=== PATIENT | female | born 1970 | race Caucasian/White ===

== ENCOUNTER 2017-10-10 07:18 | Emergency (ER) | payer BC ==
--- NOTE | 2017-10-10 08:01 | RAD REPORT ---
EXAM DESCRIPTION: CT - Head Brain Wo Cont - 10/10/2017 7:51 am CLINICAL HISTORY: Seizure COMPARISON: None. TECHNIQUE: Computed axial tomography of the head was obtained. IV contrast was not requested. All CT scans are performed using dose optimization technique as appropriate and may include automated exposure control or mA/KV adjustment according to patient size. FINDINGS: A posterior scalp hematoma is present without underlying skull fracture seen An intracranial bleed is not seen . The ventricles are normal in caliber. No extra-axial fluid collection is noted. Fluid within the sinuses/ mastoids is not seen. IMPRESSION: No acute intracranial abnormality is seen. If patient's symptoms persist MRI of the bra in would be recommended.
[2017-10-10 08:06] LABS: Absolute Lymphocytes (CBC) 0.9 K/uL (0.7-4.9); Absolute Monocytes 0.7 K/uL (0.1-1.3); Absolute Neutrophil 7.4 K/uL (1.8-8.0); Basophils % 0.7 % (0-1.3); Eosinophils % 1.1 % (0-4.4); Hematocrit 43.2 % (36.0-45.0); Lymphocytes % 10.2 % (15.3-44.8); MCH 31.6 pg (27.0-35.0); MCV 90.4 fL (80-100); MPV 9.2 fL (7.6-11.3); Monocytes % 7.4 % (3.3-12.3); RBC Red Blood Cell Count 4.78 M/uL (3.86-4.86)
[2017-10-10 09:28] LABS: Urine Blood 2+ (NEG); Urine Glucose NEGATIVE (NEG); Urine Protein 1+ (NEG); Urine Specific Gravity >1.030 (1.005-1.030)
[2017-10-10] MEDS ORDERED: NA CHLORIDE 0.9% 1,000 ML ONE (11:23)
--- NOTE | 2017-10-10 11:23 | RAD REPORT ---
EXAM DESCRIPTION: MRI - Brain Wo Cont - 10/10/2017 11:09 am CLINICAL HISTORY: Seizure COMPARISON: October 10, [address] TECHNIQUE: Axial, sagittal, and coronal magnetic images of the brain were obtained. Contrast was not requested FINDINGS: No abnormal signal is present within the brain. Diffusion-weighted/ADC mapping does not reveal evidence of acute infarction. The ventricles are normal caliber. An extra-axial fluid collection is not present. The hippocampal gyri are normal size and signal Mild opacification of the sphenoid and ethmoid sinuses seen. A small mucus retention cyst is present the right maxillary sinus. The mastoids are clear IMPRESSION: No acute intracranial abnormality is visualized
--- NOTE | 2017-10-10 11:57 | EDPHYS ---
Physician Documentation [facility] Name: Bonny Powers Age: 46 yrs Sex: Female : 1970 Arrival Date: 10/10/2017 Time: 07:19 Bed 6 Private MD: ED Physician Osvaldo Raymundo HPI: 10/10 16:57 This 46 yrs old Female presents to ER via EMS with complaints of Seizure. kdr 16:57 The patient presents after having a single isolated seizure, that lasted Brief. kdr Character of seizure(s): Loss of consciousness: the patient experienced loss of consciousness, Motor activity: generalized, shaking all over, Incontinence: none, Apnea: the patient did not experience apnea, Circulation: the patient did not experience evidence of pulse disturbance. Seizure onset: just prior to arrival. Context: the seizure(s) was witnessed, by a bystander, occurred at a hospital, occurred while the patient was standing. Seizure Hx: the patient has no previous seizure history. Associated injury: Head/face: left occipital area and right occipital area. The patient has not experienced similar symptoms in the past. The patient has not recently seen a physician. The patient was standing next to a hospital bed when she had an apparent syncopal episode. She fell without warning striking her head on the side of the bed and the floor. Then she had a brief episode of tonic clonic activity. By the time of her arrival to the ED, she had no recollection of the event and no complaint of pain. 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 - Social history:: Smoking status: . - Ebola Screening: : Patient denies travel to an Ebola-affected area in the 21 days before illness onset. ROS: 16:57 Constitutional: Negative for fever, chills, and weight loss, Eyes: Negative for injury, kdr pain, redness, and discharge, ENT: Negative for injury, pain, and discharge, Neck: Negative for injury, pain, and swelling, Cardiovascular: Negative for chest pain, palpitations, and edema, Respiratory: Negative for shortness of breath, cough, wheezing, and pleuritic chest pain, Abdomen/GI: Negative for abdominal pain, nausea, vomiting, diarrhea, and constipation, Back: Negative for injury and pain, : Negative for injury, bleeding, discharge, and swelling, MS/Extremity: Negative for injury and deformity, Skin: Negative for injury, rash, and discoloration, Psych: Negative for depression, anxiety, suicide ideation, homicidal ideation, and hallucinations, Allergy/Immunology: Negative for hives, rash, and allergies, Endocrine: Negative for neck swelling, polydipsia, polyuria, polyphagia, and marked weight changes, Hematologic/Lymphatic: Negative for swollen nodes, abnormal bleeding, and unusual bruising. 16:57 Neuro: Positive for headache, seizure activity, syncope. Exam: 16:57 Constitutional: This is a well developed, well nourished patient who is awake, alert, kdr and in no acute distress. Head/Face: Normocephalic, minor hematoma to the occiput Eyes: Pupils equal round and reactive to light, extra-ocular motions intact. Lids and lashes normal. Conjunctiva and sclera are non-icteric and not injected. Cornea within normal limits. Periorbital areas with no swelling, redness, or edema. Neck: Trachea midline, no thyromegaly or masses palpated, and no cervical lymphadenopathy. Supple, full range of motion without nuchal rigidity, or vertebral point tenderness. No Meningismus. Chest/axilla: Normal chest wall appearance and motion. Nontender with no deformity. No lesions are appreciated. Cardiovascular: Regular rate and rhythm with a normal S1 and S2. No gallops, murmurs, or rubs. Normal PMI, no JVD. No pulse deficits. Respiratory: Lungs have equal breath sounds bilaterally, clear to auscultation and percussion. No rales, rhonchi or wheezes noted. No increased work of breathing, no retractions or nasal flaring. Abdomen/GI: Soft, non-tender, with normal bowel sounds. No distension or tympany. No guarding or rebound. No evidence of tenderness throughout. Back: No spinal tenderness. No costovertebral tenderness. Full range of motion. Skin: Warm, dry with normal turgor. Normal color with no rashes, no lesions, and no evidence of cellulitis. MS/ Extremity: Pulses equal, no cyanosis. Neurovascular intact. Full, normal range of motion. Neuro: Awake and alert, GCS 15, oriented to person, place, time, and situation. Cranial nerves II-XII grossly intact. Motor strength 5/5 in all extremities. Sensory grossly intact. Cerebellar exam normal. Normal gait. Psych: Awake, alert, with orientation to person, place and time. Behavior, mood, and affect are within normal limits. Vital Signs: 07:21 BP 147 / 92; Pulse 99; Resp 18; Temp 98.6(O); Pulse Ox 99% on R/A; Pain 0/10; tw2 08:23 BP 138 / 82; Pulse 88; Resp 17; Pulse Ox 100% on R/A; tw2 09:49 BP 132 / 83; Pulse 82; Resp 16; Pulse Ox 100% ; sv 11:18 BP 149 / 82; Pulse 85; Resp 18; Pulse Ox 98% on R/A; ag [place] Coma Score: 07:24 Eye Response: spontaneous(4). Verbal Response: oriented(5). Motor Response: obeys tw2 commands(6). Total: 15. MDM: 11:57 Patient medically screened. kdr 16:57 Data reviewed: vital signs, nurses notes, lab test result(s), radiologic studies. kdr Counseling: I had a detailed discussion with the patient and/or guardian regarding: the historical points, exam findings, and any diagnostic results supporting the discharge/admit diagnosis, lab results, radiology results, the need for outpatient follow up. 10/10 07:38 Order name: CBC with Diff; Complete Time: 08:11 kdr 10/10 07:38 Order name: Chem 7; Complete Time: 09:08 kdr 10/10 07:38 Order name: CT Head Brain wo Cont; Complete Time: 08:11 kdr 10/10 08:14 Order name: MRI - Brain Wo Cont; Complete Time: 11:55 ss 10/10 08:29 Order name: Urine Dipstick--Ancillary (enter results); Complete Time: 10:34 bd 10/10 08:29 Order name: Urine --Ancillary (enter results); Complete Time: 10:34 bd 10/10 07:38 Order name: EKG Strip; Complete Time: 07:39 kdr 10/10 07:38 Order name: Urine Dipstick-Ancillary (obtain specimen); Complete Time: 08:28 kdr 10/10 07:38 Order name: Urine Test (obtain specimen); Complete Time: 08:28 kdr 10/10 11:47 Order name: EKG Electrocardiogram EDAR Administered Medications: 11:21 Drug: NS 0.9% 1000 ml Route: IV; Rate: 1 bolus; Site: right antecubital; tw2 12:10 Follow up: Response: No adverse reaction; IV Status: Order to discontinue infusion; IV tw2 Intake: 700ml Disposition: 10/10/17 11:57 Discharged to Home. Impression: Syncope and collapse. - Condition is Stable. - Discharge Instructions: Syncope, [id number]. - Medication Reconciliation Form, Thank You Letter form. - Follow up: Private Physician; When: 2 - 3 days; Reason: If symptoms return, Further diagnostic work-up, Recheck today's complaints, Continuance of care, Re-evaluation by your physician. - Problem is new. - Symptoms are resolved. Signatures: Dispatcher [employer] EDAR Osvaldo Raymundo MD MD kdr Lynsey Angel RN RN tw2 Corrections: (The following items were deleted from the chart) 07:48 07:40 IV Saline Lock ordered. tw2 tw2 12:11 11:57 10/10/2017 11:57 Discharged to Home. Impression: Syncope and collapse. Condition tw2 is Stable. Forms are Medication Reconciliation Form, Thank You Letter, Antibiotic Education, Prescription Opioid Use. Follow up: Private Physician; When: 2 - 3 days; Reason: If symptoms return, Further diagnostic work-up, Recheck today's complaints, Continuance of care, Re-evaluation by your physician. Problem is new. Symptoms are resolved. kdr
--- NOTE | 2017-10-10 11:57 | ER ---
Nurse's Notes [facility] Name: Bonny Powers Age: 46 yrs Sex: Female : 1970 Arrival Date: 10/10/2017 Time: 07:19 Bed 6 Private MD: Diagnosis: Syncope and collapse Presentation: 10/10 07:19 Presenting complaint: EMS states: pt was at the surgery center dropping off a friend, tw2 witnessed grand mal seizure, fell and hit the back of her neck on the bed rail, no hx of previous seizures, for us she has been a\T\o4, pt has had no sleep for 24 hrs now, hx: htn, takes bystolic 20g RIGHT AC. Transition of care: patient was not received from another setting of care. Onset of symptoms was October 10, 2017. Risk Assessment: Do you want to hurt yourself or someone else? Patient reports no desire to harm self or others. Initial Sepsis Screen: Does the patient meet any 2 criteria? No. Patient's initial sepsis screen is negative. Does the patient have a suspected source of infection? No. Patient's initial sepsis screen is negative. Care prior to arrival: IV initiated. 20 GA, in the right antecubital area. 07:19 Method Of Arrival: EMS: [facility] tw2 07:19 Acuity: DAVID 3 tw2 TITLE I DIRECTOR: 07:35 LMP 09/20/2017 tw2 Historical: - Allergies: 07:23 No Known Allergies; tw2 - Home Meds: 07:23 Bystolic oral oral [Active]; tw2 - PMHx: 07:23 Hypertension; tw2 - Immunization history:: Adult Immunizations up to date. - Social history:: Smoking status: . - Ebola Screening: : Patient denies travel to an Ebola-affected area in the 21 days before illness onset. Screenin:31 Abuse screen: Denies threats or abuse. Nutritional screening: No deficits noted. tw2 Tuberculosis screening: No symptoms or risk factors identified. Fall Risk None identified. Assessment: 07:32 General: Appears in no apparent distress. well groomed, Behavior is calm, cooperative, tw2 appropriate for age. Pain: Denies pain. Neuro: Level of Consciousness is awake, alert, obeys commands, Oriented to person, place, time, situation. Cardiovascular: Denies chest pain, shortness of breath, Heart tones S1 S2 Capillary refill < 3 seconds Patient's skin is warm and dry. Respiratory: Airway is patent Respiratory effort is even, unlabored, Respiratory pattern is regular, symmetrical, Breath sounds are clear bilaterally. GI: No signs and/or symptoms were reported involving the gastrointestinal system. Abdomen is flat, Bowel sounds present X 4 quads. : No signs and/or symptoms were reported regarding the genitourinary system. EENT: No signs and/or symptoms were reported regarding the EENT system. Derm: No signs and/or symptoms reported regarding the dermatologic system. Skin is intact, is healthy with good turgor, Skin temperature is warm. Musculoskeletal: Range of motion: intact in all extremities. 08:24 Reassessment: Patient appears in no apparent distress at this time. No changes from tw2 previously documented assessment. Patient and/or family updated on plan of care and expected duration. Pain level reassessed. Patient is alert, oriented x 3, equal unlabored respirations, skin warm/dry/pink. 09:30 Reassessment: Patient appears in no apparent distress at this time. No changes from tw2 previously documented assessment. Patient and/or family updated on plan of care and expected duration. Pain level reassessed. Patient is alert, oriented x 3, equal unlabored respirations, skin warm/dry/pink. 10:30 Reassessment: Patient appears in no apparent distress at this time. No changes from tw2 previously documented assessment. Patient and/or family updated on plan of care and expected duration. Pain level reassessed. Patient is alert, oriented x 3, equal unlabored respirations, skin warm/dry/pink. 11:21 Reassessment: Patient appears in no apparent distress at this time. No changes from tw2 previously documented assessment. Patient and/or family updated on plan of care and expected duration. Pain level reassessed. Patient is alert, oriented x 3, equal unlabored respirations, skin warm/dry/pink. 12:09 Reassessment: Patient appears in no apparent distress at this time. No changes from tw2 previously documented assessment. Patient and/or family updated on plan of care and expected duration. Pain level reassessed. Patient is alert, oriented x 3, equal unlabored respirations, skin warm/dry/pink. Vital Signs: 07:21 BP 147 / 92; Pulse 99; Resp 18; Temp 98.6(O); Pulse Ox 99% on R/A; Pain 0/10; tw2 08:23 BP 138 / 82; Pulse 88; Resp 17; Pulse Ox 100% on R/A; tw2 09:49 BP 132 / 83; Pulse 82; Resp 16; Pulse Ox 100% ; sv 11:18 BP 149 / 82; Pulse 85; Resp 18; Pulse Ox 98% on R/A; ag [place] Coma Score: 07:24 Eye Response: spontaneous(4). Verbal Response: oriented(5). Motor Response: obeys tw2 commands(6). Total: 15. ED Course: 07:19 Patient arrived in ED. tw2 07:21 Triage completed. tw2 07:21 Osvaldo Raymundo MD is Attending Physician. kdr 07:21 Arm band placed on. tw2 07:23 Bed in low position. Call light in reach. Side rails up X2. Seizure precautions tw2 initiated. 07:31 Lynsey Angel RN is Primary Nurse. tw2 07:35 No provider procedures requiring assistance completed. Maintain EMS IV. Dressing tw2 intact. Good blood return noted. Site clean \T\ dry. Gauge \T\ site: 20 g right ac. 07:38 EKG done, by licensed veterinary technician. reviewed by Osvaldo Raymundo MD. at1 07:49 Chem 7 Sent. tw2 07:49 CBC with Diff Sent. tw2 07:51 CT completed. Patient tolerated procedure well. Patient moved to CT via stretcher. sj Patient moved back from CT. 07:51 CT Head Brain wo Cont In Process Unspecified. EDMS 10:30 Patient moved to MRI via wheelchair. ka 10:54 MRI - Brain Wo Cont In Process Unspecified. EDMS 12:11 IV discontinued, intact, bleeding controlled, No redness/swelling at site. Pressure tw2 dressing applied. Administered Medications: 11:21 Drug: NS 0.9% 1000 ml Route: IV; Rate: 1 bolus; Site: right antecubital; tw2 12:10 Follow up: Response: No adverse reaction; IV Status: Order to discontinue infusion; IV tw2 Intake: 700ml Intake: 12:10 IV: 700ml; Total: 700ml. tw2 Outcome: 11:57 Discharge ordered by . kdr 12:10 Discharged to home ambulatory, with friend. tw2 12:10 Condition: stable 12:10 Discharge instructions given to patient, friend, Instructed on discharge instructions, follow up and referral plans. Demonstrated understanding of instructions, follow-up care. 12:11 Patient left the ED. tw2 Signatures: Dispatcher [employer] EDTerra Adams, RN RN Osvaldo Sousa MD MD kdr Jones, Susan sj gonzales, Amanda, manager room EKG [address] [place] Katelyn ka Wise, Tara, RN RN tw2 Corrections: (The following items were deleted from the chart) 10:09 09:30 BP 112 / 62; Pulse 87bpm; Resp 13bpm; Pulse Ox 97% RA; tw2 tw2
--- NOTE | 2017-10-10 12:13 | EKG ---
Test Date: 2017-10-10 Test Time: 07:23:35 Materials Handling Coordinator: CIRILO MEASUREMENT RESULTS: Intervals: Rate: 92 CO: 120 QRSD: 74 QT: 380 QTc: 469 Ina: P: 28 CO: 120 QRS: 12 T: 25 INTERPRETIVE STATEMENTS: Sinus rhythm with premature supraventricular complexes Otherwise normal ECG No previous ECG available for comparison Electronically Signed On 10-10-17 12:11:58 CDT by Gaston Cohen
== END 2017-10-10 12:11 | disposition home or self-care (01) ==
LOC: ER 07:18
DX: R55 Syncope and collapse (principal); I10 Essential (primary) hypertension; W17.89XA Other fall from one level to another, initial encounter; Y93.89 Activity, other specified; Y92.230 Patient room in hospital as the place of occurrence of the external cause
CPT/HCPCS: 36415; 70450; 70551; 80048; 81003; 81025; 85025; 93005; 96360; 99284; J7030